=== PATIENT | male | born 1945 | race Caucasian/White ===

== ENCOUNTER 2019-02-28 12:01 | Emergency (ER) | payer BC ==
[~2019-02-28] VITALS: Ht 182.9 cm; Wt 83.9 kg
[2019-02-28] MEDS ORDERED: AZIT250T PO (12:15)
--- NOTE | 2019-02-28 12:15 | NUR ---
Pt was seen by .
[2019-02-28 13:01] VITALS: BP 158/88
--- NOTE | 2019-02-28 13:03 | NUR ---
Pt was discharged home in stable condition.Verbal and writen discharge instruction provided.Pt verbalized understanding.
== END 2019-02-28 13:02 | disposition home or self-care (01) ==
LOC: ER 12:03
DX: J06.9 Acute upper respiratory infection, unspecified (principal); Z88.8 Allergy status to other drugs, medicaments and biological substances; Z79.2 Long term (current) use of antibiotics
CPT/HCPCS: 71101; A4663